=== PATIENT | female | born 1945 | race Native Hawaiian/Other Pacific Islander ===

== ENCOUNTER 2021-01-10 13:49 | Outpatient (CLI) | payer OTHER | END 2021-01-10 21:26 | disposition home or self-care (01) | LOC: RAD 13:49 | PROVIDERS: ATTEND Orthopaedic Surgery | DX: M25.561 Pain in right knee (principal); M25.562 Pain in left knee ==

== ENCOUNTER 2021-06-05 12:22 | Outpatient (CLI) | payer OTHER | END 2021-06-05 21:49 | disposition home or self-care (01) | LOC: RAD 12:22 | PROVIDERS: ATTEND Physician Assistant | DX: M25.561 Pain in right knee (principal) ==